=== PATIENT | female | born 1985 | race Two or more races ===

== ENCOUNTER 2017-02-26 08:41 | Emergency (ER) | payer MEDICAID ==
[2017-02-26 09:57] VITALS: BP 125/84
--- NOTE | 2017-02-27 11:30 | ER ---
DATE SEEN: 02/26/2017 HISTORY OF PRESENT ILLNESS: This 32-year-old woman comes in with shortness of breath. She feels like she cannot get her breath for the past 7 days. She denies asthma. She is not a smoker. Last menstrual period on February 19, 2017. She does not drink alcohol. She felt "kind of sick," but she denies fever, and she has had moderate runny nose. Denies headache, neck stiffness, fall, trauma, or abuse. She denies dyspnea on exertion, but on further inquiry after 20 feet then she feels mildly short of breath. She has just moved from [place] a month ago. MEDICATIONS: She is not currently on any medicines. ALLERGIES: None. PAST MEDICAL HISTORY: No surgery. No diabetes, heart disease, other serious illnesses. REVIEW OF SYSTEMS: Negative except as noted above in the HPI. PHYSICAL EXAMINATION: VITAL SIGNS: Blood pressure 122/80, heart rate 94, respirations 18, oxygen saturation 100%, and temperature is 36.6 degrees centigrade. GENERAL: Alert woman, in mild distress. Slightly overweight. HEENT: TMs negative. Pharynx without abnormality. She has marked turbinate enlargement, left greater than right nasal chamber. She has moderate shiners, bilateral eyes. Mild sinus discomfort. NECK: Supple. No cervical adenopathy. No thyromegaly. LUNGS: Clear to auscultation. No rales, no rhonchi, no wheezes. HEART: S1 and S2. No murmur. ABDOMEN: Soft. No discomfort. No chest wall discomfort with palpation. No guarding in the abdomen. No rebound. Bowel sounds normal. EXTREMITIES: Lower extremities without edema. No pain or tenderness of lower extremities. IMAGING: Ultrasound the abdomen reveals fluid in the left pelvic gutter, not in the right. Small ovarian cyst on the right. ASSESSMENT: Ruptured ovarian cyst. PLAN: Vicodin 1 q.4 to 6 hours p.r.n. breakthrough pain. Otherwise, Tylenol 1000 mg, ibuprofen 800 mg together q.6 hours. Follow up with doctor in a week. Gradually increase activity as tolerated. The patient received a shot of Toradol 60 mg IM. The patient was seen at 0856 hours. /[id number] SUSANA/ENRIQUE HORNERD
== END 2017-02-26 09:54 | disposition home or self-care (01) ==
LOC: FB.ED 08:41
DX: N83.201 Unspecified ovarian cyst, right side (principal)
CPT/HCPCS: 99284

== ENCOUNTER 2017-03-09 11:17 | Emergency (ER) | payer MEDICAID ==
--- NOTE | 2017-03-09 12:04 | EDM.PDOC ---
ED HPI GENERAL MEDICAL PROBLEM - General Chief Complaint: Respiratory Problem Stated Complaint: trouble breathing Time Seen by Provider: 03/09/17 11:45 Source of Information: Reports: Patient History Limitations: Reports: No Limitations - History of Present Illness INITIAL COMMENTS - FREE TEXT/NARRATIVE: 32 yo female presents with SOB. Relocated here from [place] about a month ago, SOB has been present since arrival, and has been in our ER 3 times already. The last time she was here 1-2 weeks ago she was tx'd with prednisone that she states she is still taking without benefit. Denies smoking. Has not been to the clinic. No fever. States she is SOB now, but denies anxiety. No hx of asthma. No calf pain or LE edema. Was here once also for ruptured ovarian cyst. Denies current anxiety. Feels like her heart is beating fast at times with the SOB. Onset: Gradual Onset Date: 02/07/17 Duration: Week(s): Location: Reports: Chest Quality: Reports: Other Severity: Mild Improves with: Reports: None Worsens with: Reports: Other (unknown) Context: Reports: Other (new in country) Associated Symptoms: Reports: No Other Symptoms Treatments ENTRY EXAMINER: Reports: Other Medication(s) (prednisone) BILATERAL LOWER SIDES Pain Score (Numeric/FACES): 8 - Related Data Allergies Allergy/AdvReac Type Severity Reaction Status Date / Time aspirin Allergy Airway Verified 03/09/17 11:29 Tightness Home Meds: Home Meds Prednisone [IJD: Prednisone] 10 mg PO ASDIRECTED #30 tab 02/26/17 [Rx] Past Medical History Respiratory History: Reports: SOB Genitourinary History: Reports: Other (See Below) Other Genitourinary History: Patient reports past kidney problems. 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: - Past Surgical History Female Surgical History: Reports: Section, Tubal Ligation, Other ( See Below) Other Female Surgeries/Procedures: kidney stone removal in [place] Social & Family History - Tobacco Use Smoking Status *Q: Never Smoker - Caffeine Use Caffeine Use: Reports: None - Recreational Drug Use Recreational Drug Use: No ED ROS GENERAL - Review of Systems Review Of Systems: See Below Constitutional: Reports: No Symptoms HEENT: Reports: No Symptoms Respiratory: Reports: Shortness of Breath (mild) Cardiovascular: Reports: No Symptoms Endocrine: Reports: No Symptoms GI/Abdominal: Reports: No Symptoms : Reports: No Symptoms Musculoskeletal: Reports: No Symptoms Skin: Reports: No Symptoms Neurological: Reports: No Symptoms Psychiatric: Reports: No Symptoms Hematologic/Lymphatic: Reports: No Symptoms ED EXAM, GENERAL - Physical Exam Exam: See Below Exam Limited By: No Limitations General Appearance: Alert, WD/WN, No Apparent Distress. No: Anxious, Mild Distress, Moderate Distress, Severe Distress Eye Exam: Bilateral Eye: Normal Inspection, PERRL Ears: Normal External Exam, Normal Canal, Hearing Grossly Normal, Normal TMs Ear Exam: Bilateral Ear: Auricle Normal, Canal Normal, TM normal Nose: Normal Inspection, Normal Mucosa, No Blood, Other (slight bilateral nasal congestion without mucosal pallor) Throat/Mouth: Normal Inspection, Normal Lips, Normal Teeth, Normal Gums, Normal Oropharynx, Normal Voice, No Airway Compromise Head: Atraumatic, Normocephalic Neck: Normal Inspection, Supple, Non-Tender Respiratory/Chest: No Respiratory Distress, Lungs Clear, Normal Breath Sounds, No Accessory Muscle Use, Other (mild bilateral lateral chest wall tenderness with bruising or crepitus.) Cardiovascular: Regular Rate, Rhythm, No Edema GI/Abdominal: Normal Bowel Sounds, Soft, Non-Tender, No Distention Back Exam: Normal Inspection, Full Range of Motion. No: CVA Tenderness (R), CVA Tenderness (L) Extremities: Normal Inspection, Normal Range of Motion, Non-Tender, No Pedal Edema Neurological: Alert, Oriented, CN II-XII Intact, Normal Cognition, No Motor/ Sensory Deficits Psychiatric: Normal Affect, Normal Mood Skin Exam: Warm, Dry, Intact, Normal Color, No Rash Lymphatic: No Adenopathy Course - Vital Signs Text/Narrative:: peak flow 350 Orthostatic vitals-normal Last Recorded V/S: Last Vital Signs Temp 36.8 C 03/09/17 11:30 Pulse 81 03/09/17 12:47 Resp 16 03/09/17 11:30 BP 119/80 03/09/17 12:47 Pulse Ox 100 03/09/17 11:30 Orthostatic Blood Pressure [ 134/91 Supine] - Orders/Labs/Meds Orders: Active Orders 24 hr Category Date Time Status Orthostatic Vital Signs [RC] ASDIRECTED Care 03/09/17 11:57 Active Labs: Laboratory Tests 09/11/17 Range/Units 12:59 D-Dimer, Quantitative < 100 L (100-400) ng/mL Departure - Departure Time of Disposition: 13:37 Disposition: Home, Self-Care 01 Condition: Good Clinical Impression: Dyspnea, unspecified Qualifiers: Dyspnea type: unspecified Qualified Code(s): R06.00 - Dyspnea, unspecified - Discharge Information Referrals: PCP,None [Primary Care Provider] - Forms: ED Department Discharge - My Orders Last 24 Hours: My Active Orders 03/09/17 11:57 Orthostatic Vital Signs [RC] ASDIRECTED - Assessment/Plan Last 24 Hours: My Active Orders 03/09/17 11:57 Orthostatic Vital Signs [RC] ASDIRECTED
[2017-03-09 14:11] VITALS: BP 124/92
== END 2017-03-09 14:10 | disposition home or self-care (01) ==
LOC: FB.ED 11:17
DX: R06.00 Dyspnea, unspecified (principal); Z88.8 Allergy status to other drugs, medicaments and biological substances; Z98.51 Tubal ligation status
CPT/HCPCS: 36415; 85379; 99284

== ENCOUNTER 2017-05-19 12:37 | Emergency (ER) | payer MEDICAID ==
[2017-05-19] MEDS ORDERED: Acetaminophen 325 MG Tab PO ONE (12:57)
--- NOTE | 2017-05-19 13:01 | EDM.PDOC ---
ED HPI GENERAL MEDICAL PROBLEM - General Chief Complaint: Gastrointestinal Problem Stated Complaint: ABDOMINAL PAIN Time Seen by Provider: 05/19/17 12:50 Source of Information: Reports: Patient History Limitations: Reports: No Limitations - History of Present Illness INITIAL COMMENTS - FREE TEXT/NARRATIVE: Padma comes to [facility] ED with a 3 day hx of respiratory sxs including cough, some retrosternal lower chest pain, and malaise. She has managed sxs with rest and fluids, but today she developed some diarrhea. Stools are loose, without BRB or mucous. Sheis currently menstruating. - Related Data Allergies Allergy/AdvReac Type Severity Reaction Status Date / Time aspirin Allergy Severe Airway Verified 05/19/17 13:08 Tightness Home Meds: Home Meds NK [No Known Home Meds] 05/19/17 [History] Past Medical History Respiratory History: Reports: SOB Genitourinary History: Reports: Other (See Below) Other Genitourinary History: Patient reports past kidney problems. 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: - Past Surgical History Female Surgical History: Reports: Section, Tubal Ligation, Other ( See Below) Other Female Surgeries/Procedures: kidney stone removal in [place] Social & Family History - Tobacco Use Smoking Status *Q: Never Smoker - Caffeine Use Caffeine Use: Reports: None - Recreational Drug Use Recreational Drug Use: No ED ROS GENERAL - Review of Systems Review Of Systems: See Below Constitutional: Reports: Malaise, Decreased Appetite HEENT: Reports: No Symptoms Respiratory: Reports: Cough Cardiovascular: Reports: Chest Pain Endocrine: Reports: No Symptoms GI/Abdominal: Reports: Abdominal Pain, Diarrhea : Reports: No Symptoms Musculoskeletal: Reports: No Symptoms Skin: Reports: No Symptoms Neurological: Reports: No Symptoms Psychiatric: Reports: No Symptoms Hematologic/Lymphatic: Reports: No Symptoms Immunologic: Reports: No Symptoms ED EXAM, GI/ABD - Physical Exam Exam: See Below Exam Limited By: No Limitations General Appearance: Alert, WD/WN, No Apparent Distress, Anxious Eyes: Bilateral: Normal Appearance, EOMI Ears: Normal External Exam Nose: Normal Inspection Throat/Mouth: Normal Inspection, Normal Oropharynx Head: Normocephalic Neck: Normal Inspection, Supple, Non-Tender Respiratory/Chest: No Respiratory Distress, Lungs Clear, Normal Breath Sounds, No Accessory Muscle Use, Chest Non-Tender Cardiovascular: Regular Rate, Rhythm, No Murmur GI/Abdominal Exam: Normal Bowel Sounds, Soft, Non-Tender, No Organomegaly, No Distention, No Mass Rectal (Female) Exam: Deferred Back Exam: Normal Inspection Extremities: Normal Inspection Neurological: Alert, Oriented, CN II-XII Intact, Normal Cognition, Normal Gait, No Motor/Sensory Deficits Psychiatric: Normal Affect, Anxious Skin Exam: Warm, Dry Lymphatic: No Adenopathy Course - Vital Signs Text/Narrative:: Padma was administered Tylenol 650 mg po pending lab reports, which are baseline. She was clinically improved at time of discharge. Last Recorded V/S: Last Vital Signs Temp 36.6 C 05/19/17 13:25 Pulse 77 05/19/17 13:25 Resp 16 05/19/17 13:25 BP 142/86 H 05/19/17 13:25 Pulse Ox 100 05/19/17 13:25 - Orders/Labs/Meds Orders: Active Orders 24 hr Category Date Time Status URINALYSIS W/MICROSCOPIC [UA W/MICROSCOPIC] [URIN] Stat Lab 05/19/17 13:30 Received Labs: Laboratory Tests 05/19/17 Range/Units 13:10 WBC 10.5 (4.5-12.0) X10-3/uL RBC 4.34 (3.23-5.20) x10(6)uL Hgb 12.3 (11.5-15.5) g/dL Hct 36.0 (30.0-51.3) % MCV 83.0 (80-96) fL MCH 28.2 (27.7-33.6) pg MCHC 34.0 (32.2-35.4) g/dL RDW 14.3 (11.5-15.5) % Plt Count 352 (125-369) X10(3)uL MPV 8.9 (7.4-10.4) fL Neut % (Auto) 78.6 (46-82) % Lymph % (Auto) 15.0 (13-37) % [place] % (Auto) 4.8 (4-12) % Eos % (Auto) 1 (1.0-5.0) % Baso % (Auto) 1 (0-2) % Neut # (Auto) 8.2 (1.6-8.3) # Lymph # (Auto) 1.6 (0.6-5.0) # [place] # (Auto) 0.5 (0.0-1.3) # Eos # (Auto) 0.1 (0.0-0.8) # Baso # (Auto) 0.1 (0.0-0.2) # Meds: Medications Discontinued Medications Generic Name Dose Route Start Last Admin Trade Name Freq PRN Reason Stop Dose Admin Acetaminophen 650 mg 05/19/17 12:57 05/19/17 13:31 Tylenol PO 05/19/17 12:58 650 mg NOW ONE Administration Departure - Departure Time of Disposition: 13:45 Disposition: Home, Self-Care 01 Condition: Fair Clinical Impression: Gastroenteritis - Discharge Information Referrals: PCP,Unknown [Ordering Only Provider] - Forms: ED Department Discharge - Problem List & Annotations (1) Gastroenteritis SNOMED Code(s): 25061756 Code(s): K52.9 - NONINFECTIVE GASTROENTERITIS AND COLITIS, UNSPECIFIED Status: Acute Current Visit: Yes Annotation/Comment:: Tylenol for pains, full liquid diet, and Imodium if needed. A note for work was provided. - Problem List Review Problem List Initiated/Reviewed/Updated: Yes - My Orders Last 24 Hours: My Active Orders 05/19/17 13:30 URINALYSIS W/MICROSCOPIC [UA W/MICROSCOPIC] [URIN] Stat - Assessment/Plan Last 24 Hours: My Active Orders 05/19/17 13:30 URINALYSIS W/MICROSCOPIC [UA W/MICROSCOPIC] [URIN] Stat Plan: Follow up with PCP.
[2017-05-19 14:00] VITALS: BP 132/75
== END 2017-05-19 13:55 | disposition home or self-care (01) ==
LOC: FB.ED 12:37
DX: K52.9 Noninfective gastroenteritis and colitis, unspecified (principal); Z88.6 Allergy status to analgesic agent; Z98.890 Other specified postprocedural states
CPT/HCPCS: 36415; 81001; 85025; 99284; A9270

== ENCOUNTER 2018-01-13 13:33 | Emergency (ER) | payer OTHER, MEDICAID ==
--- NOTE | 2018-01-13 14:25 | EDM.PDOC ---
ED HPI GENERAL MEDICAL PROBLEM - General Chief Complaint: Abdominal Pain Stated Complaint: STOMACH PAIN Time Seen by Provider: 01/13/18 14:20 Source of Information: Reports: Patient History Limitations: Reports: No Limitations - History of Present Illness INITIAL COMMENTS - FREE TEXT/NARRATIVE: Presents with intermittent epigastric burning pain x 1 week associated with nausea and worse with all types of food. No prior h/o abdominal surgeries. History of nephrolithiasis and lithotripsy several years ago. Patient is currently menstruating. Duration: Week(s): (1) Location: Reports: Abdomen Quality: Reports: Burning Severity: Moderate Improves with: Reports: None Worsens with: Reports: Eating Associated Symptoms: Reports: Nausea/Vomiting Lower Epigastric Pain Score (Numeric/FACES): 9 - Related Data Allergies Allergy/AdvReac Type Severity Reaction Status Date / Time aspirin Allergy Severe Airway Verified 01/13/18 14:53 Tightness Home Meds: Home Meds Pantoprazole Sodium [Protonix] 40 mg PO DAILY #15 tab 01/13/18 [Rx] Past Medical History Genitourinary History: Reports: Renal Calculus - Past Surgical History GI Surgical History: Reports: None Female Surgical History: Reports: Section, Lithotripsy/ESWL, Tubal Ligation, Other (See Below) Social & Family History - Tobacco Use Smoking Status *Q: Never Smoker - Caffeine Use Caffeine Use: Reports: None - Alcohol Use Alcohol Use History: No ED ROS GENERAL - Review of Systems Review Of Systems: ROS reveals no pertinent complaints other than HPI. ED EXAM, GI/ABD - Physical Exam Exam: See Below Exam Limited By: No Limitations General Appearance: Alert, WD/WN, No Apparent Distress Ears: Normal External Exam Nose: Normal Inspection Throat/Mouth: No Airway Compromise Head: Atraumatic, Normocephalic Neck: Full Range of Motion Respiratory/Chest: No Respiratory Distress, Lungs Clear, Normal Breath Sounds Cardiovascular: Regular Rate, Rhythm, No Gallop, No Murmur, No Rub GI/Abdominal Exam: Normal Bowel Sounds, Soft, No Distention, Tender (moderate epigastric) Back Exam: Full Range of Motion Extremities: Normal Range of Motion Neurological: Alert, Oriented Psychiatric: Normal Affect, Normal Mood Skin Exam: Warm, Dry, Intact, Normal Color, No Rash Course - Vital Signs Last Recorded V/S: Last Vital Signs Temp 36.8 C 01/13/18 14:30 Pulse Resp 17 01/13/18 14:30 BP 131/92 H 01/13/18 14:30 Pulse Ox 100 01/13/18 14:30 - Orders/Labs/Meds Orders: Active Orders 24 hr Category Date Time Status Abdomen Ltd [US] Stat Exams 01/13/18 14:19 Ordered HCG QUALITATIVE,URINE [URCHEM] Stat Lab 01/13/18 14:28 Ordered UA W/MICROSCOPIC [URIN] Stat Lab 01/13/18 14:28 Ordered Labs: Laboratory Tests 01/13/18 01/13/18 01/13/18 Range/Units 14:28 14:28 14:35 WBC 8.0 (4.5-12.0) X10-3/uL RBC 4.14 (3.23-5.20) x10(6)uL Hgb 12.2 (11.5-15.5) g/dL Hct 35.8 (30.0-51.3) % MCV 86.4 (80-96) fL MCH 29.4 (27.7-33.6) pg MCHC 34.0 (32.2-35.4) g/dL RDW 13.5 (11.5-15.5) % Plt Count 320 (125-369) X10(3)uL MPV 8.6 (7.4-10.4) fL Neut % (Auto) 65.4 (46-82) % Lymph % (Auto) 26.3 (13-37) % [place] % (Auto) 4.8 (4-12) % Eos % (Auto) 3 (1.0-5.0) % Baso % (Auto) 1 (0-2) % Neut # (Auto) 5.2 (1.6-8.3) # Lymph # (Auto) 2.1 (0.6-5.0) # [place] # (Auto) 0.4 (0.0-1.3) # Eos # (Auto) 0.2 (0.0-0.8) # Baso # (Auto) 0.1 (0.0-0.2) # Sodium (135-145) mmol/L Potassium (3.5-5.3) mmol/L Chloride (100-110) mmol/L Carbon Dioxide (21-32) mmol/L BUN (7-18) mg/dL Creatinine (0.55-1.02) mg/dL Est Cr Clr Drug Dosing mL/min Estimated GFR (MDRD) (>60) BUN/Creatinine Ratio (9-20) Glucose (80-116) mg/dL Calcium (8.6-10.2) mg/dL Total Bilirubin (0.1-1.3) mg/dL AST (5-25) IU/L ALT (12-36) U/L Alkaline Phosphatase (56-112) IU/L Total Protein (6.0-8.0) g/dL Albumin (3.5-5.2) g/dL Globulin g/dL Albumin/Globulin Ratio Amylase (25-115) U/L Urine Color Yellow (YELLOW) Urine Appearance Clear (CLEAR) Urine pH 7.0 H (5.0-6.5) Ur Specific [place] 1.015 (1.010-1.025) Urine Protein Negative (NEGATIVE) mg/dL Urine Glucose (UA) Normal (NEGATIVE) mg/dL Urine Ketones Negative (NEGATIVE) mg/dL Urine Occult Blood Large H (NEGATIVE) Urine Nitrite Negative (NEGATIVE) Urine Bilirubin Negative (NEGATIVE) Urine Urobilinogen Normal (NEGATIVE) mg/dL Ur Leukocyte Esterase Negative (NEGATIVE) Urine RBC 50-75 H (0) Urine WBC 0-5 (0) Ur Squamous Epith Cells Few H (NS,R,O) Urine Bacteria Few H (NS) Urine HCG, Qual Negative (NEGATIVE) 01/13/18 Range/Units 14:35 WBC (4.5-12.0) X10-3/uL RBC (3.23-5.20) x10(6)uL Hgb (11.5-15.5) g/dL Hct (30.0-51.3) % MCV (80-96) fL MCH (27.7-33.6) pg MCHC (32.2-35.4) g/dL RDW (11.5-15.5) % Plt Count (125-369) X10(3)uL MPV (7.4-10.4) fL Neut % (Auto) (46-82) % Lymph % (Auto) (13-37) % [place] % (Auto) (4-12) % Eos % (Auto) (1.0-5.0) % Baso % (Auto) (0-2) % Neut # (Auto) (1.6-8.3) # Lymph # (Auto) (0.6-5.0) # [place] # (Auto) (0.0-1.3) # Eos # (Auto) (0.0-0.8) # Baso # (Auto) (0.0-0.2) # Sodium 138 (135-145) mmol/L Potassium 3.4 L (3.5-5.3) mmol/L Chloride 102 (100-110) mmol/L Carbon Dioxide 29 (21-32) mmol/L BUN 14 (7-18) mg/dL Creatinine 0.7 (0.55-1.02) mg/dL Est Cr Clr Drug Dosing 84.41 mL/min Estimated GFR (MDRD) > 60 (>60) BUN/Creatinine Ratio 20.0 (9-20) Glucose 82 (80-116) mg/dL Calcium 8.4 L (8.6-10.2) mg/dL Total Bilirubin 0.2 (0.1-1.3) mg/dL AST 14 (5-25) IU/L ALT 19 (12-36) U/L Alkaline Phosphatase 69 (56-112) IU/L Total Protein 7.6 (6.0-8.0) g/dL Albumin 4.3 (3.5-5.2) g/dL Globulin 3.3 g/dL Albumin/Globulin Ratio 1.3 Amylase 44 (25-115) U/L Urine Color (YELLOW) Urine Appearance (CLEAR) Urine pH (5.0-6.5) Ur Specific [place] (1.010-1.025) Urine Protein (NEGATIVE) mg/dL Urine Glucose (UA) (NEGATIVE) mg/dL Urine Ketones (NEGATIVE) mg/dL Urine Occult Blood (NEGATIVE) Urine Nitrite (NEGATIVE) Urine Bilirubin (NEGATIVE) Urine Urobilinogen (NEGATIVE) mg/dL Ur Leukocyte Esterase (NEGATIVE) Urine RBC (0) Urine WBC (0) Ur Squamous Epith Cells (NS,R,O) Urine Bacteria (NS) Urine HCG, Qual (NEGATIVE) Meds: Medications Discontinued Medications Generic Name Dose Route Start Last Admin Trade Name Freq PRN Reason Stop Dose Admin Al Hydroxide/Mg Hydroxide 15 0 ml 01/13/18 15:50 01/13/18 16:11 ml/ Lidocaine HCl 15 ml PO 01/13/18 15:51 15 ml ONETIME ONE Administration - Radiology Interpretation Free Text/Narrative:: Biliary US attempted but gallbladder contracted, so rescheduled for tomorrow @ 1500. - Re-Assessments/Exams Free Text/Narrative Re-Assessment/Exam: 01/13/18 16:40 Symptoms resolved after GI cocktail. Departure - Departure Time of Disposition: 16:41 Disposition: Home, Self-Care 01 Condition: Good Clinical Impression: Abdominal pain Qualifiers: Abdominal location: epigastric Qualified Code(s): R10.13 - Epigastric pain - Discharge Information *PRESCRIPTION DRUG MONITORING PROGRAM REVIEWED*: No *COPY OF PRESCRIPTION DRUG MONITORING REPORT IN PATIENT ANNIKA: Not Applicable Prescriptions: Pantoprazole Sodium [Protonix] 40 mg PO DAILY #15 tab Instructions: Gastritis, Adult, [id number], Gallbladder Eating Plan Referrals: Janel Orta NP [Primary Care Provider] - Forms: ED Department Discharge Additional Instructions: Fill prescription for Protonix and take as directed. Keep appt for Gallbladder Ultrasound tomorrow at 3pm, do not eat for 6 hours prior the study. Avoid spicy and fatty foods. Follow up with your primary doctor in 2-3 days. Return to the ER if symptoms worsen. - My Orders Last 24 Hours: My Active Orders 01/13/18 14:19 Abdomen Ltd [US] Stat 01/13/18 14:28 HCG QUALITATIVE,URINE [URCHEM] Stat UA W/MICROSCOPIC [URIN] Stat - Assessment/Plan Last 24 Hours: My Active Orders 01/13/18 14:19 Abdomen Ltd [US] Stat 01/13/18 14:28 HCG QUALITATIVE,URINE [URCHEM] Stat UA W/MICROSCOPIC [URIN] Stat
[2018-01-13] MEDS ORDERED: Alum Hydroxide/Mag Hydroxide 15 ML, Lidocaine 2% 15 ML PO ONE ×2 (15:50)
[2018-01-13] MEDS ORDERED: Pantoprazole 40 MG Tab.CR PO ONE (16:50)
[2018-01-13 17:24] VITALS: BP 147/90
[2018-01-14] MEDS ORDERED: Pantoprazole 40 MG Tab.CR PO ONE (16:42)
== END 2018-01-13 17:00 | disposition home or self-care (01) ==
LOC: FB.ED 13:33
DX: R10.13 Epigastric pain (principal); Z88.8 Allergy status to other drugs, medicaments and biological substances
CPT/HCPCS: 36415; 80053; 81001; 81025; 82150; 85025; 99285; A9270-GY